=== PATIENT | male | born 1970 | race African-American/Black ===

== ENCOUNTER 2017-07-27 14:58 | Emergency (ER) | payer OTHER ==
[~2017-07-27] VITALS: Ht 170.2 cm; Wt 55.5 kg
[2017-07-27 17:21] VITALS: BP 131/87
== END 2017-07-27 17:23 | disposition home or self-care (01) ==
LOC: EME 14:58
DX: R07.89 Other chest pain (principal); F41.9 Anxiety disorder, unspecified; F32.9 Major depressive disorder, single episode, unspecified; F17.200 Nicotine dependence, unspecified, uncomplicated
CPT/HCPCS: 71046; 93005; 99281; 99284

== ENCOUNTER 2018-01-03 23:50 | Emergency (ER) | payer OTHER ==
[~2018-01-03] VITALS: Ht 172.7 cm; Wt 54.7 kg
[2018-01-03 23:51] VITALS: BP 110/66
[2018-01-04] MEDS ORDERED: CIPRO500 MG PO (00:12)
== END 2018-01-04 00:58 | disposition home or self-care (01) ==
LOC: EME 23:50
PROC: 3E0234Z Introduction of Serum, Toxoid and Vaccine into Muscle, Percutaneous Approach (ICD-10-PCS; principal; 2018-01-03)
DX: S91.331A Puncture wound without foreign body, right foot, initial encounter (principal); W45.0XXA Nail entering through skin, initial encounter; Z23 Encounter for immunization; F17.200 Nicotine dependence, unspecified, uncomplicated
CPT/HCPCS: 73630; 99281; 99284